=== PATIENT | male | born 1955 | race Caucasian/White ===

== ENCOUNTER 2017-01-01 13:54 | Emergency (ER) | payer OTHER ==
[2017-01-01 14:02] VITALS: BP 142/71; PULSE 78; RESP 17; TEMP 97.7; O2SAT 96
[2017-01-01] MEDS ORDERED: TDAP ADULT 0.5 ML INJ (BOOSTRIX) IM ONE (15:09)
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
== END 2017-01-06 08:36 | disposition home or self-care (01) ==
PROC: 09QKXZZ Repair Nasal Mucosa and Soft Tissue, External Approach (ICD-10-PCS; principal; 2017-01-01)
DX: S02.2XXB Fracture of nasal bones, initial encounter for open fracture (principal); S01.21XA Laceration without foreign body of nose, initial encounter; Z23 Encounter for immunization; Z79.82 Long term (current) use of aspirin; V19.9XXA Pedal cyclist (driver) (passenger) injured in unspecified traffic accident, initial encounter; Y92.410 Unspecified street and highway as the place of occurrence of the external cause; Y93.55 Activity, bike riding

== ENCOUNTER 2017-11-03 09:44 | Inpatient (IN) | payer OTHER ==
[2017-11-03] MEDS ORDERED: NS 1,000 ML IV ONE (10:35)
[2017-11-03] MEDS ORDERED: KETOROLAC 30 MG/1 ML SDV IVP ONE (10:35)
[2017-11-03 11:01] LABS: % IMMATURE GRANULYOCYTES 0.3 % (0.0-1.1); ABSOLUTE IMMATURE GRANULOCYTES 0.02 10^3/uL (0.00-0.10); ADD DIFF? NO; ADD MORPH? NO; ADD SCAN? NO; ATYPICAL LYMPHOCYTE FLAG 0 (0-99); FRAGMENT RBC FLAG 0 (0-99); HEMATOCRIT 47.4 % (40.0-51.0); HEMOGLOBIN 16.5 g/dL (13.7-17.5); LEFT SHIFT FLG 10 (0-99); LIPEMIA HEMOLYSIS FLAG 90 (0-99); MEAN CELL HEMOGLOBIN 29.7 pg (27.9-34.1); MEAN CELL HEMOGLOBIN CONCENTR. 34.8 g/dL (32.4-36.7); MEAN CELL VOLUME 85.3 fL (81.5-99.8); MEAN PLATELET VOLUME 9.3 fL (8.7-11.7); PLATELET CLUMPS FLAG 0 (0-99); PLATELET COUNT 199 10^3/uL (150-400); RED BLOOD CELL COUNT 5.56 10^6/uL (4.40-6.38); RED CELL DISTRIBUTION WIDTH 12.8 % (11.5-15.2)
[2017-11-03 11:13] LABS: ANION GAP 15 mEq/L (8-16); CALCIUM 9.3 mg/dL (8.5-10.4); CARBON DIOXIDE 24 mEq/l (22-31); CHLORIDE 102 mEq/L (97-110); GLOMERULAR FILTRATION RATE > 60; GLUCOSE 95 mg/dL (70-100); POTASSIUM 3.8 mEq/L (3.5-5.2); SODIUM 141 mEq/L (134-144)
[2017-11-03 11:38] LABS: COLOR YELLOW; LEUKOCYTE ESTERASE,URINE TRACE (NEGATIVE); NITRITE,URINE NEGATIVE (NEGATIVE); PH,URINE 5.5 (5.0-7.5)
[2017-11-03] MEDS ORDERED: IOPAMIDOL (ISOVUE-300) 100 ML BTL ONE (11:54)
[2017-11-03 11:56] LABS: WBC,URINE 15-25 /hpf (0-3)
[2017-11-03 11:57] LABS: BACTERIA TRACE /hpf (NONE SEEN); MUCUS 2+ /lpf (NONE-1+)
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
[2017-11-03] MEDS ORDERED: PROMETHAZINE HCL 25 MG/ML INJ IVP PRN (15:29)
[2017-11-03] MEDS ORDERED: ONDANSETRON 4 MG/2 ML VIAL IVP PRN (15:29)
[2017-11-03] MEDS ORDERED: ONDANSETRON DISINTEGRATING 4 MG TAB PO PRN (15:29)
[2017-11-03] MEDS ORDERED: NS W/ 20 KCl/L 1,000 ML IV SCH (15:30)
[2017-11-03] MEDS ORDERED: HYDROmorphone HCL/NS/PF 0.4 MG/2 ML SYR IVP PRN (16:15)
--- NOTE | 2017-11-03 17:19 | GHP ---
[f rep st] HISTORY AND PHYSICAL DATE OF ADMISSION: 11/03/2017 CHIEF COMPLAINT: Abdominal discomfort and distention. HISTORY OF PRESENT ILLNESS: The patient is a pleasant 62-year-old gentleman with a past medical hist ory of previous appendectomy and cholecystectomy, who started to have abdominal discomfort 2 days ly or to coming into the hospital. He states when the temperature changed, he developed a significant h eadache, which was associated with mild nausea, but no actual emesis. He did have one episode of dry heaving. He has been passing bowels. He currently states his abdominal pain seems reasonably well controlled. When he stands up and walks, he feels a little bit distended, but overall no nausea. Hi s appendectomy was complicated by laceration of the abdominal aorta, and he had to have repair with e xploratory laparotomy. PAST MEDICAL HISTORY: 1. Hyperlipidemia. Previously on statin therapy, but now off. 2. History of diverticulitis. 3. Glaucoma. 4. Retinal detachment. PAST SURGICAL HISTORY: 1. Appendectomy. 2. Cholecystectomy. 3. Appendectomy complicated by lacerated abdominal aorta, status post exploratory laparotomy and aor tic repair. FAMILY HISTORY: Father from pancreatic cancer. Mother from breast cancer. SOCIAL HISTORY: The patient recently moved to [place] from [place] approximately 2 years ago. He i s a nonsmoker. Drinks 1-2 glasses of wine daily. 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 REVIEW OF SYSTEMS: CONSTITUTIONAL: No complaints of any fevers or chills. ENT: No recent upper re spiratory illnesses. CARDIOVASCULAR: No complaints of chest pains, palpitations or syncopal episode s. RESPIRATORY: No shortness of breath or productive cough. GI: Positive for abdominal distention with nausea. No bloody stools. No constipation. He is passing stools as well. : No report of any difficulty with urination. NEUROLOGIC: No complaints of any focal weakness. He did have a head ache 48 hours ago, but this has resolved. HEMATOLOGIC: No history of any deep vein thrombosis or pu lmonary embolism. PSYCHIATRIC: No history of anxiety or depression. ENDOCRINE: Positive for hyper lipidemia. No hypothyroidism. SKIN: No report of any new skin rashes. MUSCULOSKELETAL: No focal joint pains. PHYSICAL EXAM: VITAL SIGNS: Temperature is 36.7, blood pressure 127/67, heart rate 69, respirations 20, saturating 92% on room air. GENERAL: Patient resting comfortably in bed, awake, alert, interac tive, no acute distress. HEENT: Extraocular movements appear intact. No scleral icterus. Mucous m embranes moist. NECK: Supple. No adenopathy. No bruit. CHEST: Clear on auscultation with normal respiratory effort. ABDOMEN: Mildly distended. Bowel sounds are normal in all 4 quadrants. Nonte nder with palpation. : No Kumar catheter in place. EXTREMITIES: No significant pitting edema. NEUROLOGIC: Cranial nerves 2-12 intact. Strength 5/5 in all extremities. LABS: White blood cell count 7, hemoglobin 16, platelets 199. Sodium 141, potassium 3.8, chloride 1 02, bicarb 24, BUN 18, creatinine 1.0, glucose 95. Urinalysis shows trace leukocyte esterase. IMAGING: Abdominal CT shows earlier partial small bowel obstruction, possibly related to left abdomi nal adhesion, resolved diverticulitis, right inguinal fat hernia. ASSESSMENT AND PLAN: 1. Small bowel obstruction. This may be possible earlier partial by CT imaging. The patient is cur rently not having any significant vomiting or abdominal discomfort from distention, so we will hold o ff on placing nasogastric tube at the current time. I did review his case with Dr. Spencer Estrada, so he is aware and will follow along. Intravenous fluids overnight. Repeat blood work in the [facility] including lactic acid level. 2. Hyperlipidemia. Currently off statin therapy. Management per the primary care provider. 3. Deep venous thrombosis prophylaxis. Lovenox. 4. Disposition. We will admit patient under an inpatient status as he may be here for over 2 midnig hts, probably 3-4 days. /[id number]/MODL
--- NOTE | 2017-11-03 17:39 | PDMN ---
Medical Necessity Medical necessity: C/M review: Patient meets INPT criteria under MCG M-210 Intestinal obstruction; Acute partial bowel obstruction on CT requiring ongoing NPO, IV fluids, IV antiemetics as needed, IV Dilaudid as needed, comorbid hyperlipidemia, history of diverticulitis, glaucoma, retinal detachment, cholecystectomy, appendectomy complicated by lacerated abdominal aorta S/P exploratory laparotomy and aortic repair. MD anticipates > 2 MN LOS for ongoing med nec for eval and TX of above.
--- NOTE | 2017-11-03 22:50 | GCON ---
[f rep st] CONSULTATION DATE OF CONSULTATION: 11/03/2017 CHIEF COMPLAINT: Abdominal pain with nausea and vomiting. HISTORY OF PRESENT ILLNESS: This is a 62-year-old male, who was in his usual state of health up until morning. States that he awoke morning and had a migraine headache, the first of which he has ever had. The migraine persisted for the majority of the day, but was associated with occasional nausea and abdominal pain. He states that the migraine diminished, but the nausea and abdominal pain persisted. This lasted night into Sunday, and through Sunday. He was able to keep some liquids down, but had persistent nausea and abdominal pain, which prompted his presentation at [facility] earlier today for evaluation. Prior to my seeing him in the hospital, he describes the pain as lower midline without radiation, colicky in nature. Associated with nausea, but no vomiting. He states that he continues to have bowel movements, and that he has had loose stools over the last 24 hours , having a bowel movement even at [facility] earlier today. On my arrival, the patient is comfortable. He states that he currently has no abdominal pain other than when he sits straight up and complains of lower abdominal pain, which is mild, and without radiation. He currently has no nausea or vomiting. Continues to pass flatus. He denies having any fevers or chills, and states that the pain he was experiencing previously had completely resolved. PAST MEDICAL HISTORY: Hyperlipidemia, diverticulitis, glaucoma, and retinal detachment. PAST SURGICAL HISTORY: Appendectomy, complicated by port into abdominal aorta, status post exploratory laparotomy with repair, cholecystectomy with hernia repair. FAMILY HISTORY: Noncontributory. SOCIAL HISTORY: Relocated here from [place]. Denies illicit drug use. Does drink wine socially. REVIEW OF SYSTEMS: 10-point review performed. PHYSICAL EXAMINATION: VITAL SIGNS: Temperature 36.6, blood pressure 149/80, heart rate 63, and he is 93% on room air. CONSTITUTIONAL: He is in no apparent distress. He appears comfortable. HEENT: Eyes is pupils equal, round , and reactive to light and accommodation. His extraocular movements are intact. Ears, nose, mouth and throat, he has moist mucous membranes. Hearing is normal. His ears appear normal. CARDIOVASCULAR: He is currently in a regular rate and rhythm without any murmurs. RESPIRATORY: He has no respiratory distress. No rales or rhonchi. GI: ABDOMEN: Soft, nondistended, nontender. He has a midline incision, which is well healed. He has no apparent abdominal hernias. He has no rebound tenderness or guarding. He is both nontender to soft on deep palpation. SKIN: Warm. Normal color. No rashes. MUSCULOSKELETAL: Full strength. No tenderness. Normal joint range of motion. NEUROLOGIC: He is alert and oriented. His cranial nerves 2-12 are intact. He has no weakness or numbness. PSYCH: He is interacting appropriately. He is not anxious. LYMPH/HEME/IMMUNOLOGIC: He has no cervical or groin lymphadenopathy appreciated. MEDICAL DECISION MAKING: At [facility] he had a CBC checked, which shows a normal white blood cell count at 7. His H and H stable at 16 and 47. His platelets are normal at 199. He does not have a left shift on his CBC. His chemistry is completely unremarkable. He had a CT scan, the images of which were personally reviewed by me, does show some small dilated proximal small bowel fluid loops without félix transition point. There is no free fluid. There is no free air. There are no other suspicious findings. ASSESSMENT/PLAN: A 62-year-old male with likely partial small bowel obstruction versus enteritis. On my examination, the patient currently has no pain. He is not nauseated. Continues to have bowel function. I do feel that last week or previous he did have a bout of enteritis, which caused some of this. Likely dehydration which precipitated this, but I feel as though he is resolving clinically. We will continue to monitor. I anticipate that he will look good in the morning, at which point in time would favor p.o. challenge over additional studies, but if he continues to have issues, would favor small- bowel follow-through over any other examination. I discussed these findings with the patient, as well as the social professionals admitting the patient. All questions were answered. /[id number]/MODL MTDD
[2017-11-04 05:05] LABS: % IMMATURE GRANULYOCYTES 0.3 % (0.0-1.1); ABSOLUTE IMMATURE GRANULOCYTES 0.02 10^3/uL (0.00-0.10); ADD DIFF? NO; ADD MORPH? NO; ADD SCAN? NO; ATYPICAL LYMPHOCYTE FLAG 20 (0-99); FRAGMENT RBC FLAG 0 (0-99); HEMATOCRIT 41.2 % (40.0-51.0); HEMOGLOBIN 14.5 g/dL (13.7-17.5); LEFT SHIFT FLG 0 (0-99); LIPEMIA HEMOLYSIS FLAG 90 (0-99); MEAN CELL HEMOGLOBIN 30.7 pg (27.9-34.1); MEAN CELL HEMOGLOBIN CONCENTR. 35.2 g/dL (32.4-36.7); MEAN CELL VOLUME 87.1 fL (81.5-99.8); MEAN PLATELET VOLUME 9.4 fL (8.7-11.7); PLATELET CLUMPS FLAG 0 (0-99); PLATELET COUNT 153 10^3/uL (150-400); RED BLOOD CELL COUNT 4.73 10^6/uL (4.40-6.38); RED CELL DISTRIBUTION WIDTH 12.8 % (11.5-15.2)
[2017-11-04 05:26] LABS: ANION GAP 13 mEq/L (8-16); CALCIUM 8.8 mg/dL (8.5-10.4); CARBON DIOXIDE 20 mEq/l (22-31); CHLORIDE 109 mEq/L (97-110); CREATININE 0.9 mg/dL (0.7-1.3); GLOMERULAR FILTRATION RATE > 60; GLUCOSE 78 mg/dL (70-100); MAGNESIUM 1.7 mg/dL (1.6-2.3); POTASSIUM 4.4 mEq/L (3.5-5.2); SODIUM 142 mEq/L (134-144)
[2017-11-04 07:12] VITALS: RESP 18; O2SAT 92
--- NOTE | 2017-11-04 08:31 | HOSPPROG ---
Hospitalist Progress Note Assessment/Plan: # #HLD: statin # Objective: Vital Signs Temp Pulse Resp BP Pulse Ox 36.4 C 65 18 111/65 92 11/04/17 07:11 11/04/17 07:11 11/04/17 07:11 11/04/17 07:11 11/04/17 07:11 Laboratory Results 11/04/17 04:56 11/04/17 04:56 11/03/17 11/04/17 11/05/17 05:59 05:59 05:59 Intake Total 250 Balance 250 ICD10 Worksheet Patient Problems: Problems Problem Status Onset Partial small bowel obstruction Acute Biliary colic Acute Diverticulitis Acute
[2017-11-04] MEDS ORDERED: ENOXAPARIN 40 MG/0.4 ML SYR SC SCH (09:00)
--- NOTE | 2017-11-04 09:44 | SOAPPROG ---
SOAP Progress Note Assessment/Plan: Assessment/Plan: 62-year-old male with partial small bowel obstruction, resolving Overnight, the patient has had bowel function stating that he was up most of the night with diarrhea. His abdomen is soft, nondistended, he has no nausea or vomiting and is hungry. We will plan to advance his diet today, if he tolerates plan to discharge home today. Does need to follow up with Dr. Yepez to have his ventral hernia addressed in the future 11/04/17 09:43 Subjective: Having diarrhea Objective: Vital Signs Temp Pulse Resp BP Pulse Ox 36.4 C 65 18 111/65 92 11/04/17 07:11 11/04/17 07:11 11/04/17 07:11 11/04/17 07:11 11/04/17 07:11 Laboratory Results 11/04/17 04:56 11/04/17 04:56 11/03/17 11/04/17 11/05/17 05:59 05:59 05:59 Intake Total 250 Balance 250 ICD10 Worksheet Patient Problems: Problems Problem Status Onset Partial small bowel obstruction Acute Biliary colic Acute Diverticulitis Acute
[2017-11-04 10:56] VITALS: BP 120/81; PULSE 63; TEMP 98.5
--- NOTE | 2017-11-04 11:56 | HOSPPROG ---
Hospitalist Progress Note Assessment/Plan: #Partial bowel obstruction: no N/V. Having diarrhea. Daughter was recently ill. GI PCR pending -h/o multiple bowel surgeries -ADAT #HLD: statin #Diet: ADAT #DVT: Lovenox #Disp: may DC later today if tolerating PO Subjective: no abd pain. No N/V. Had 20 watery stools today Objective: Vital Signs Temp Pulse Resp BP Pulse Ox 36.9 C 63 18 120/81 H 92 11/04/17 10:55 11/04/17 10:55 11/04/17 10:55 11/04/17 10:55 11/04/17 10:55 Laboratory Results 11/04/17 04:56 11/04/17 04:56 11/03/17 11/04/17 11/05/17 05:59 05:59 05:59 Intake Total 250 Balance 250 - Physical Exam Constitutional: no apparent distress Eyes: PERRL Ears, Nose, Mouth, Throat: moist mucous membranes Cardiovascular: regular rate and rhythym Respiratory: no respiratory distress, no rales or rhonchi Gastrointestinal: normoactive bowel sounds, tenderness (minimal diffuse TTP), distension (mild distension) Genitourinary: no bladder fullness Skin: warm Musculoskeletal: full muscle strength Neurologic: AAOx3, CN II-XII Intact Psychiatric: interacting appropriately ICD10 Worksheet Patient Problems: Problems Problem Status Onset Partial small bowel obstruction Acute Biliary colic Acute Diverticulitis Acute
[2017-11-04] MEDS ORDERED: FLU VACC QS 2017-18 (3YR+)/PF 0.5 ML SYR (FLUARIX QUAD) IM ONE (14:14)
--- NOTE | 2017-11-04 14:17 | GDS ---
[f rep st] DISCHARGE SUMMARY DISCHARGE DIAGNOSES: 1. Norovirus. 2. Acute diarrhea. 3. Partial small bowel obstruction. HISTORY OF PRESENT ILLNESS: A 62-year-old male with a history of hyperlipidemia and diverticulitis, presenting with abdominal discomfort for 2 days prior to coming in. He started having a headache on . He had some mild nausea, but no emesis. Then, he began having watery diarrhea on Sunday. When he stood up, he felt a little bit distended. HOSPITAL COURSE BY PROBLEM: 1. Partial small bowel obstruction: This was noted on abdominal CT. He does have a history of mult iple abdominal surgeries. CT showed resolved diverticulitis and a hernia. He is actually tolerating a bland diet without issue. No nausea or vomiting. He was evaluated by Surgery. Norovirus may hav e contributed. 2. Norovirus: This was an acute issue. I stressed the importance of washing his hands at home and having the family wipe down all surfaces. He is tolerating p.o. without issue. His electrolytes are within normal. I advised him to drink plenty fluids, including Pedialyte or Gatorade. 3. Hyperlipidemia: Statin. DISPOSITION: The patient is stable for discharge. FOLLOWUP: With his primary care physician. /[id number]/MODL
--- NOTE | 2017-11-04 14:28 | ASMTCMCOM ---
CM Note CM Note Notes: Patient admitted with diarrhea and partial bowel obstruction. He has a history of multiple bowel surgeries. He lives independently with his and will discharge home when medically stable. CM available if any discharge needs arise. Date Signed: 11/04/2017 02:28 PM Electronically Signed By:Mirian Henao RN
--- NOTE | 2017-11-06 10:12 | ASDISCHSUM ---
Discharge Information Plan Status:Home with No Needs Medically Cleared to Leave: Discharge Date:11/04/2017 02:43 PM D/C Disposition:Home Health Service ADT D/C Disposition:Home, Routine, Self-Care Projected Discharge Date:11/04/2017 02:43 PM Transportation at D/C:Family Discharge Delay Reason: Follow-Up Date:11/04/2017 02:43 PM Discharge Slot: Final Diagnosis: Placement Information Patient Contact Information Contact Name:PORTIA Relationship: Address:[address] Home Phone: City:[place] Alternate Phone: [facility]/Zip Code:[place] [address] Email: Financial Information Financial Class:[employer] Primary Plan Desc:MARIELLE WALDRON Primary Plan Number:[id number] Secondary Plan Desc: Secondary Plan Number: Assessment Information [facility] CM Progress Note CM Note CM Note Notes: Patient admitted with diarrhea and partial bowel obstruction. He has a history of multiple bowel surgeries. He lives independently with his and will discharge home when medically stable. CM available if any discharge needs arise. Date Signed: 11/04/2017 02:28 PM Electronically Signed By:Mirian Henao RN Intervention Information
== END 2017-11-04 14:43 | disposition home or self-care (01) | DRG 389 ==
LOC: CED 09:44 → CEDHOLD 13:56 → F3E 15:25 → OBSVTOIN 15:54
PROVIDERS: ADMIT Internal Medicine; ATTEND Internal Medicine
DX: K56.600 Partial intestinal obstruction, unspecified as to cause (principal); A08.11 Acute gastroenteropathy due to Norwalk agent; K43.9 Ventral hernia without obstruction or gangrene; R19.7 Diarrhea, unspecified; Z23 Encounter for immunization; E78.5 Hyperlipidemia, unspecified; H40.9 Unspecified glaucoma; Z80.8 Family history of malignant neoplasm of other organs or systems; Z98.890 Other specified postprocedural states; Z87.828 Personal history of other (healed) physical injury and trauma
CPT/HCPCS: 74177-PO; 80048-PO; 81003-PO; 81015-PO; 85025-PO; 96374; G0008; J1170; J1650; J1885; Q9967